=== PATIENT | male | born 1995 | race African-American/Black ===

== ENCOUNTER → 2019-01-17 | Outpatient (CLI) | payer OTHER ==
--- NOTE | 2019-01-17 14:50 | REP ---
Three-phase bone scan of the lower legs: History: Bilateral abdi pain times 2 years. Question stress injury. Technique: 21.4 mCi technetium 99m MDP is injected and standard three-phase imaging was acquired of the knees and calves. Findings: Anterior and posterior flow study is normal. Blood pool images show no abnormality. Delayed scan images demonstrate focally abnormal increased uptake in the posterior and medial cortex of the proximal third of the right tibia and posteriorly at mid shaft level in the left tibia consistent with stress periostitis bilaterally. There is no evidence of established stress fracture. Impression: Bilateral tibial stress periostitis pattern, also known as abdi splints. No established stress fracture seen. Electronically Signed by Osito Santos MD 01/17/2019 02:58 P
== END ==
LOC: M RAD 09:26
PROVIDERS: ATTEND Physician Assistant Medical
DX: S86.891A Other injury of other muscle(s) and tendon(s) at lower leg level, right leg, initial encounter (principal); S86.892A Other injury of other muscle(s) and tendon(s) at lower leg level, left leg, initial encounter; Y93.9 Activity, unspecified; Y99.9 Unspecified external cause status; Y92.9 Unspecified place or not applicable; X58.XXXA Exposure to other specified factors, initial encounter
CPT/HCPCS: 78315; A9503

== ENCOUNTER 2019-04-08 14:44 | Emergency (ER) | payer OTHER ==
[~2019-04-08] VITALS: Ht 170.2 cm; Wt 82.6 kg
[2019-04-08] MEDS ORDERED: KETOROLAC 30 MG/ML VIAL (J1885) IM ONE (17:00)
--- NOTE | 2019-04-08 17:26 | REP ---
Thoracic spine three views: Vertebral body heights, interspacing alignment are normal. Mineralization and pedicles are normal. There is no compression deformity or listhesis. Impression: Negative thoracic spine. Electronically Signed by Alin Montgomery MD 04/08/2019 05:17 P
[2019-04-08] MEDS ORDERED: KETO10TAB PO (17:30)
[2019-04-08 17:42] VITALS: BP 111/70
== END 2019-04-08 17:44 | disposition home or self-care (01) ==
LOC: M ED 14:44
DX: S29.012A Strain of muscle and tendon of back wall of thorax, initial encounter (principal); X58.XXXA Exposure to other specified factors, initial encounter; Y92.099 Unspecified place in other non-institutional residence as the place of occurrence of the external cause; Y93.9 Activity, unspecified; Y99.9 Unspecified external cause status
CPT/HCPCS: 72070; 96372; 99283; J1885

== ENCOUNTER → 2020-04-07 | Outpatient (REF) | payer SELFPAY ==
[~2020-04-07] MED LIST: KETO10TAB PO
[2020-04-07 21:21] LABS: CHLAMYDIA DNA AMPLIFICATION NEGATIVE (NEGATIVE); GC DNA AMPLIFICATION NEGATIVE (NEGATIVE)
== END ==
LOC: M LAB REF 18:46
PROVIDERS: ATTEND Physician Assistant Medical
DX: Z11.3 Encounter for screening for infections with a predominantly sexual mode of transmission (principal)